=== PATIENT | female | born 2005 | race Caucasian/White ===

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

== ENCOUNTER 2023-08-28 23:21 | Emergency (ER) | payer SELFPAY ==
[2023-08-29 04:09] LABS: Influenza A by NAA Not Detected (NotDetected); Influenza B by NAA Not Detected (NotDetected); SARS-CoV-2 NAA Rapid Test Not Detected (NotDetected)
== END 2023-08-29 01:50 | disposition home or self-care (01) ==
LOC: ERS 23:21
DX: H66.93 Otitis media, unspecified, bilateral (principal); J02.9 Acute pharyngitis, unspecified; F17.290 Nicotine dependence, other tobacco product, uncomplicated
CPT/HCPCS: 87081; 87430; 99282

== ENCOUNTER 2023-11-26 15:46 | Emergency (ER) | payer SELFPAY ==
[2023-11-26] MEDS ORDERED: Ibuprofen 800 MG TAB ONE (17:50)
== END 2023-11-26 18:45 | disposition home or self-care (01) ==
LOC: ERS 15:46
DX: S83.91XA Sprain of unspecified site of right knee, initial encounter (principal); F17.290 Nicotine dependence, other tobacco product, uncomplicated; X50.1XXA Overexertion from prolonged static or awkward postures, initial encounter; Y93.01 Activity, walking, marching and hiking
CPT/HCPCS: 99283